=== PATIENT | female | born 1980 | race Caucasian/White ===

== ENCOUNTER 2016-12-20 12:51 | Emergency (ER) | payer OTHER ==
[2016-12-20] MEDS ORDERED: DEXAMETHASONE 10 MG/ML VIAL PO STA (13:58)
[2016-12-20] MEDS ORDERED: CHERRY SYRUP 10 ML UDC PO ONE (14:08)
[2016-12-20] MEDS ORDERED: DEXAMETHASONE 10 MG/ML VIAL ONE (14:08)
== END 2016-12-20 14:17 | disposition home or self-care (01) ==
DX: H66.003 Acute suppurative otitis media without spontaneous rupture of ear drum, bilateral (principal); I49.8 Other specified cardiac arrhythmias; F17.200 Nicotine dependence, unspecified, uncomplicated
CPT/HCPCS: 93005; 93010; 99283; 99284; A9270

== ENCOUNTER 2017-05-06 22:30 | Emergency (ER) | payer OTHER ==
[2017-05-06] MEDS ORDERED: ONDANSETRON ODT 4 MG TABLET TL STA (23:03)
[2017-05-06] MEDS ORDERED: ONDANSETRON ODT 4 MG TABLET ONE (23:07)
[2017-05-06 23:16] LABS: BILIRUBIN,URINE NEGATIVE (NEGATIVE); PH,URINE 6.5 PH (5.0-7.5)
[2017-05-06 23:19] LABS: HCG UR QUAL NEGATIVE; UA CHARGE (STRIP ONLY) YES; UR CULTURE IF IND NOT INDICATED
--- NOTE | 2017-05-06 23:36 | ED Physician Documentation ---
History of Present Illness - Stated complaint Stated Complaint: N/V/EAR PROB - Chief complaint Chief Complaint: General - History obtained from History obtained from: Patient - History of Present Illness Timing: Yesterday - Additonal information Additional information: The patient is a 36-year-old female who presents with epigastric discomfort and vomiting 3 times today. She reports feeling "dizzy" for the past 2 days, with irritation in her left ear as well as frontal headache. She denies fever, sore throat, cough, or dysuria. She was seen by her primary physician 3 days ago for chronic sinusitis. She reports that in the past when she has felt like this she has been diagnosed with an ear infection. Her last menstrual period was 2 weeks ago. Review of Systems Constitutional: denies: Fever Eyes: denies: Irritation Ears: reports: Ear pain (left ear) Nose: reports: Sinus pressure / pain Throat: reports: Dental pain / toothache (left upper molar). denies: Sore throat Cardiac: denies: Chest pain / pressure Respiratory: denies: Dyspnea, Cough GI: reports: Nausea, Vomiting. denies: Abdominal Pain : reports: LMP (2 weeks ago). denies: Dysuria Skin: denies: Rash Musculoskeletal: denies: Back pain, Joint pain Neurologic: reports: Headache (frontal). 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 Psych: Depression - Past Surgical History Past Surgical History: Yes - Present Medications Home Medications: Ambulatory Orders Medication Instructions Recorded Confirmed Fexofenadine HCl 180 mg PO DAILY 12/20/16 05/06/17 Omeprazole Magnesium [Prilosec] 20 mg PO DAILY 12/20/16 05/06/17 Cephalexin 500 mg PO TID #20 tablet 05/06/17 Ondansetron Odt [Zofran] 4 mg TL Q6H PRN #10 tablet 05/06/17 - Allergies Allergies/Adverse Reactions: Allergies Allergy/AdvReac Type Severity Reaction Status Date / Time amoxicillin [Amoxicillin] Allergy Severe airway,yeast Verified 03/29/14 05:42 infec ibuprofen Allergy Severe airway Verified 03/29/14 05:42 - Social History Does the pt smoke?: Yes Smoking Status: Current every day smoker Does the pt drink ETOH?: No Does the pt have substance abuse?: No - Immunizations Immunizations are current?: Yes PD ED PE NORMAL - Vitals Vital signs reviewed: Yes (normal) - General General: Alert and oriented X 3, Well developed/nourished, Other (overweight) - HEENT HEENT: Atraumatic, EOMI, Ears normal, Pharynx benign, Other (There is tenderness to palpation of upper rearmost molar. There is no gingival swelling. There is associated tenderness to palpation of the maxilla adjacent to that tooth. Left tympanic membrane is nonerythematous.) - Neck Neck: Supple, no meningeal sign, No adenopathy, No JVD - Cardiac Cardiac: RRR, No murmur - Respiratory Respiratory: No respiratory distress, Clear bilaterally - Abdomen Abdomen: Soft, Non tender - Back Back: No CVA TTP - Derm Derm: No rash - Extremities Extremities: No edema, No calf tenderness / cord - Neuro Neuro: Alert and oriented X 3, No motor deficit Results - Vitals Vitals: Oxygen O2 Source Room air - Labs Labs: Laboratory Tests 05/06/17 23:10 Urine Color YELLOW Urine Clarity CLEAR Urine pH 6.5 Ur Specific [place] 1.025 Urine Protein NEGATIVE Urine Glucose (UA) NEGATIVE Urine Ketones 40 H Urine Occult Blood TRACE-INTA Urine Nitrite NEGATIVE Urine Bilirubin NEGATIVE Urine Urobilinogen 0.2 (NORMAL) Ur Leukocyte Esterase NEGATIVE Ur Microscopic Review NOT INDICATED Urine Culture Comments NOT INDICATED Urine HCG, Qual NEGATIVE PD MEDICAL DECISION MAKING - ED course Complexity details: reviewed old records, reviewed results, re-evaluated patient , considered differential, d/w patient ED course: The patient's presentation is most consistent with dental abscess, with associated facial discomfort and nausea. Her clinical evaluation reveals no evidence of otitis media, pharyngitis, or acute abdominal process. Urinalysis and urine test are negative. Treatment in the emergency department included administration of Zofran 4 mg orally. This totally relieved her nausea. She is being discharged with prescriptions for cephalexin and for Zofran. I discussed with her the expected course of illness, antibiotic treatment and outpatient follow-up, as well as potentially worrisome signs or symptoms that should prompt reevaluation in the emergency department. Departure - Departure Disposition: 01 Home, Self Care Clinical Impression: Dental abscess Vomiting Qualifiers: Vomiting type: unspecified Vomiting Intractability: non-intractable Nausea presence: with nausea Qualified Code(s): R11.2 - Nausea with vomiting, unspecified Condition: Stable Instructions: ED Abscess Dental, ED Nausea Vomiting Follow-Up: Mel Fu PA-C [Primary Care Provider] - Prescriptions: Cephalexin 500 mg PO TID #20 tablet Ondansetron Odt [Zofran] 4 mg TL Q6H PRN #10 tablet PRN Reason: Nausea / Vomiting Comments: Take cephalexin 3 times daily as prescribed. You can use Zofran as prescribed if needed for nausea. Follow-up with your dentist. Call to schedule an appointment. Return to the emergency department if you develop increasing dental or facial pain, persistent vomiting, or otherwise worsening symptoms. Discharge Date/Time: 05/06/17 23:46
[2017-05-06 23:48] VITALS: BP 120/63
== END 2017-05-06 23:46 | disposition home or self-care (01) ==
LOC: ED 22:30
DX: K04.7 Periapical abscess without sinus (principal); R11.2 Nausea with vomiting, unspecified; K21.9 Gastro-esophageal reflux disease without esophagitis; F32.9 Major depressive disorder, single episode, unspecified; Z88.0 Allergy status to penicillin
CPT/HCPCS: 81003; 81025; 99283; Q0162; 81001; 87086

== ENCOUNTER 2017-09-02 19:30 | Emergency (ER) | payer OTHER ==
[2017-09-02 19:35] VITALS: BP 127/83
[2017-09-02] MEDS ORDERED: cephALEXin 250 MG CAPSULE PO STA (19:56)
--- NOTE | 2017-09-02 19:56 | ED Physician Documentation ---
PD HPI URI - Stated complaint Stated Complaint: COUGH - Chief complaint Chief Complaint: Resp - History obtained from History obtained from: Patient - History of Present Illness Timing - onset: Other (5 weeks sinus pressure and productive cough despite a zpack and steroids a few weeks ago. No fevers.) Review of Systems Constitutional: reports: Fatigue. 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 HEENT: Chronic sinusitis Psych: Depression - Past Surgical History Past Surgical History: Yes - Present Medications Home Medications: Ambulatory Orders Medication Instructions Recorded Confirmed Fexofenadine HCl 180 mg PO DAILY 12/20/16 05/06/17 Omeprazole Magnesium [Prilosec] 20 mg PO DAILY 12/20/16 05/06/17 Cephalexin 500 mg PO TID #20 tablet 05/06/17 Ondansetron Odt [Zofran] 4 mg TL Q6H PRN #10 tablet 05/06/17 Cephalexin [Keflex] 500 mg PO QID #40 capsule 09/02/17 guaiFENesin/CODEINE [Robitussin AC] 5 - 10 ml PO Q6H PRN #120 ml 09/02/17 predniSONE [Deltasone] 20 mg PO [id number] #21 tab 09/02/17 - Allergies Allergies/Adverse Reactions: Allergies Allergy/AdvReac Type Severity Reaction Status Date / Time amoxicillin [Amoxicillin] Allergy Severe airway,yeast Verified 03/29/14 05:42 infec ibuprofen Allergy Severe airway Verified 03/29/14 05:42 - Social History Does the pt smoke?: Yes Smoking Status: Current every day smoker Does the pt drink ETOH?: No Does the pt have substance abuse?: No - Immunizations Immunizations are current?: Yes - POLST Patient has POLST: No PD ED PE NORMAL - Vitals Vital signs reviewed: Yes - General General: Alert and oriented X 3, No acute distress - HEENT HEENT: PERRL, EOMI, Ears normal, Moist mucous membranes, Pharynx benign - Neck Neck: Supple, no meningeal sign, No bony TTP, No bruit - Cardiac Cardiac: RRR, No murmur - Respiratory Respiratory: No respiratory distress, Other (mild rhonchi and wheezes, good air motion) - Derm Derm: No rash - Neuro Neuro: Alert and oriented X 3, Normal speech - Psych Psych: Normal mood, Normal affect Results - Vitals Vitals: Vital Signs - 24 hr 09/02/17 19:32 Temperature 36.3 C L Heart Rate 94 Respiratory 18 Rate Blood Pressure 127/83 H O2 Saturation 99 Oxygen O2 Source Room air PD MEDICAL DECISION MAKING - ED course ED course: 5 weeks of persistent illness is an indication for repeat course of antibiotics. Departure - Departure Disposition: Home, Self Care Clinical Impression: Sinusitis Qualifiers: Sinusitis location: maxillary Chronicity: subacute Qualified Code(s): J01.00 - Acute maxillary sinusitis, unspecified Condition: Good Record reviewed to determine appropriate education?: Yes Instructions: ED Sinusitis Abx Tx Prescriptions: Cephalexin [Keflex] 500 mg PO QID #40 capsule guaiFENesin/CODEINE [Robitussin AC] 5 - 10 ml PO Q6H PRN #120 ml PRN Reason: Cough predniSONE [Deltasone] 20 mg PO [id number] #21 tab Comments: Followup with your doctor in 1 week . Discharge Date/Time: 09/02/17 20:14
[2017-09-02] MEDS ORDERED: predniSONE 20 MG TABLET PO STA (19:57)
[2017-09-02] MEDS ORDERED: predniSONE 20 MG TABLET ONE (20:12)
[2017-09-02] MEDS ORDERED: cephALEXin 250 MG CAPSULE PO ONE (20:12)
== END 2017-09-02 20:14 | disposition home or self-care (01) ==
LOC: ED 19:30
DX: J01.00 Acute maxillary sinusitis, unspecified (principal); F17.200 Nicotine dependence, unspecified, uncomplicated
CPT/HCPCS: 99283; A9270; J7512

== ENCOUNTER 2017-12-09 11:25 | Emergency (ER) | payer OTHER ==
[2017-12-09 11:41] VITALS: BP 125/85
--- NOTE | 2017-12-09 14:34 | ED Physician Documentation ---
PD HPI URI - Stated complaint Stated Complaint: FLU LIKE SYMPTOMS - Chief complaint Chief Complaint: Resp - History obtained from History obtained from: Patient - History of Present Illness Timing - onset: How many weeks ago (2) Timing duration: Weeks (2) Timing details: Gradual onset Pain level max: 6 Pain level now: 5 Associated symptoms: Nasal congestion, Rhinorrhea, Sinus pain, Dry cough. 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 Psych: Depression - Past Surgical History Past Surgical History: Yes - Present Medications Home Medications: Ambulatory Orders Medication Instructions Recorded Confirmed Fexofenadine HCl 180 mg PO DAILY 12/20/16 09/14/17 Omeprazole Magnesium [Prilosec] 20 mg PO DAILY 12/20/16 09/14/17 Ondansetron Odt [Zofran] 4 mg TL Q6H PRN #10 tablet 05/06/17 09/14/17 Benzonatate [Tessalon Perle] 1 tab PO PRN PRN 09/14/17 09/14/17 Fluticasone [Flonase] 1 spray .ROUTE PRN PRN 09/14/17 09/14/17 Sulfamethox/Trimeth 800/160 1 tab PO BID 09/14/17 09/14/17 [Bactrim Ds] Benzonatate [Tessalon Perle] 100 - 200 mg PO TID PRN #30 capsule 12/09/17 Cetirizine HCl/Pseudoephedrine 1 each PO BID PRN #30 tab.er.12h 12/09/17 [Zyrtec-D Tablet] Hydrocodone/Chlorphen P-Stirex 5 ml PO BID PRN #90 ml 12/09/17 [Hydrocodone-Chlorphen ER Susp] - Allergies Allergies/Adverse Reactions: Allergies Allergy/AdvReac Type Severity Reaction Status Date / Time amoxicillin [Amoxicillin] Allergy Severe airway,yeast Verified 09/14/17 02:21 infec ibuprofen Allergy Severe airway Verified 09/14/17 02:21 - Social History Does the pt smoke?: Yes Smoking Status: Current every day smoker Does the pt drink ETOH?: No Does the pt have substance abuse?: No - Immunizations Immunizations are current?: Yes - POLST Patient has POLST: No PD ED PE NORMAL - Vitals Vital signs reviewed: Yes - General General: Alert and oriented X 3, No acute distress, Well developed/nourished - HEENT HEENT: PERRL, Ears normal, Moist mucous membranes, Pharynx benign - Neck Neck: Supple, no meningeal sign - Cardiac Cardiac: RRR, Strong equal pulses - Respiratory Respiratory: No respiratory distress, Clear bilaterally - Abdomen Abdomen: Soft, Non tender, Non distended - Derm Derm: Warm and dry, No rash - Neuro Neuro: Alert and oriented X 3 - Psych Psych: Normal mood, Normal affect Results - Vitals Vitals: Vital Signs - 24 hr 12/09/17 11:36 Temperature 37.1 C Heart Rate 110 H Respiratory 18 Rate Blood Pressure 125/85 H O2 Saturation 99 Oxygen O2 Source Room air PD MEDICAL DECISION MAKING - ED course Complexity details: considered differential, d/w patient ED course: Patient is a 37-year-old female who presents to the emergency department with what appears to be influenza. She is well-appearing, nontoxic. Afebrile. Declines influenza testing at this time. Symptoms have been ongoing, would not be a good Tamiflu candidate. We will instead provide supportive care and follow -up closely with her doctor. Patient counseled regarding signs and symptoms for which I believe and urgent re-evaluation would be necessary. Patient with good understanding of and agreement to plan and is comfortable going home at this time This document was made in part using voice recognition software. While efforts are made to proofread this document, sound alike and grammatical errors may occur. Departure - Departure Disposition: 01 Home, Self Care Clinical Impression: Viral syndrome Condition: Good Instructions: ED Viral Syndrome Follow-Up: Mel Fu PA-C [Primary Care Provider] - Within 1 week Prescriptions: Benzonatate [Tessalon Perle] 100 - 200 mg PO TID PRN #30 capsule PRN Reason: Cough Cetirizine HCl/Pseudoephedrine [Zyrtec-D Tablet] 1 each PO BID PRN #30 tab.er.12h PRN Reason: Nasal Congestion Hydrocodone/Chlorphen P-Stirex [Hydrocodone-Chlorphen ER Susp] 5 ml PO BID PRN # 90 ml PRN Reason: Cough Comments: Return if you worsen. This will likely persist for the next week. Drink plenty of fluids and rest. Do not drink alcohol or drive while on narcotic pain medicine. Note that many narcotic pain relievers also contain tylenol/acetaminophen. Please ensure that your total dose of acetaminophen from all sources does not exceed 3 grams (3000mg) per day. You may constipated on this medication, take a stool softener such as "Colace" twice a day while you are on it. Also recommend a [id number] laxative such as senna or MiraLAX any day that you do not have a bowel movement. If you received narcotic pain medication in the emergency department, do not drive or operate machinery for the next 24 hours. Forms: Activity restrictions Discharge Date/Time: 12/09/17 14:42
== END 2017-12-09 14:42 | disposition home or self-care (01) ==
LOC: ED 11:25
DX: B34.9 Viral infection, unspecified (principal); K21.9 Gastro-esophageal reflux disease without esophagitis; F17.200 Nicotine dependence, unspecified, uncomplicated
CPT/HCPCS: 99283

== ENCOUNTER 2018-03-17 19:22 | Emergency (ER) | payer OTHER ==
[2018-03-17 20:03] LABS: BILIRUBIN,URINE NEGATIVE (NEGATIVE); GLUCOSE, URINE (UA) NEGATIVE (NEGATIVE); KETONES,URINE (UA) NEGATIVE (NEGATIVE); LEUKOCYTE ESTERASE, URINE TRACE (NEGATIVE); NITRITE,URINE NEGATIVE (NEGATIVE); OCCULT BLOOD,URINE NEGATIVE (NEGATIVE); PH,URINE 7.5 PH (5.0-7.5); PROTEIN,URINE NEGATIVE (NEGATIVE); UROBILINOGEN,URINE 0.2 (NORMAL) E.U./dL (NORMAL)
[2018-03-17 20:05] LABS: CLARITY,URINE CLEAR (CLEAR)
[2018-03-17 20:18] LABS: BACTERIA,URINE Moderate /HPF (None Seen); RBC,URINE 0-5 /HPF (0-5); SQUAMOUS EPITHELIAL CELL,UR MANY Squamous (<= Few)
[2018-03-17 20:27] LABS: BASOPHILS % (AUTO) 0.2 %; EOSINOPHILS # (AUTO) 0.1 10^3/uL (0.0-0.7); EOSINOPHILS % (AUTO) 1.1 %; HGB - HEMOGLOBIN 14.7 g/dL (12.0-16.0); LYMPHOCYTES # (AUTO) 0.8 10^3/uL (1.5-3.5); LYMPHOCYTES % (AUTO) 7.1 %; MEAN CORPUSCULAR HEMOGLOBIN 26.8 pg (27.0-31.0); MEAN CORPUSCULAR HGB CONC 32.5 g/dL (32.0-36.0); MEAN CORPUSCULAR VOLUME 82.3 fL (81.0-99.0); MEAN PLATELET VOLUME 7.2 fL (7.9-10.8); MONOCYTES # (AUTO) 0.3 10^3/uL (0.0-1.0); MONOCYTES % (AUTO) 2.5 %; NEUTROPHILS # (AUTO) 9.9 10^3/uL (1.5-6.6); NEUTROPHILS % (AUTO) 89.1 %; PLT - PLATELET COUNT 299 10^3/uL (130-450); WHITE BLOOD COUNT 11.1 x10^3/uL (4.8-10.8)
[2018-03-17 20:38] LABS: HCG UR QUAL NEGATIVE
[2018-03-17 20:40] LABS: ALBUMIN/GLOBULIN RATIO 1.1 (1.0-2.2); BILIRUBIN,TOTAL 0.3 mg/dL (0.2-1.0); CALCIUM 8.9 mg/dL (8.5-10.3); CREATININE 0.5 mg/dL (0.4-1.0); TOTAL PROTEIN 7.7 g/dL (6.7-8.2)
[2018-03-17] MEDS ORDERED: fentaNYL 100 MCG/2 ML VIAL IVP STA (20:43)
[2018-03-17] MEDS ORDERED: ONDANSETRON 4 MG/2 ML VIAL IVP STA (20:43)
[2018-03-17] MEDS ORDERED: SODIUM CHLORIDE 0.9% 1,000 ML IV ONE (20:43)
--- NOTE | 2018-03-17 21:00 | ED Physician Documentation ---
PD HPI ABD PAIN - Stated complaint Stated Complaint: ABD PX/NAUSEA/DIARRHEA - Chief complaint Chief Complaint: Abd Pain - History obtained from History obtained from: Patient - History of Present Illness Timing - onset: Today (This morning after eating breakfast.) Timing - details: Still present Quality: Pain Location: RUQ, Epigastric Worsened by: Eating Associated symptoms: Nausea, Diarrhea. No: Vomiting Similar symptoms before: Has not had sx before - Additional information Additional information: The patient is a 37-year-old female who presents with epigastric abdominal pain that started this morning after eating apple fritters and chips. She has had associated nausea, but denies vomiting. She denies fever or dysuria. She has had diarrhea about 6 times today, with loose stool. She denies history of similar symptoms in the past. She has had no abdominal surgery. Review of Systems Constitutional: denies: Fever Nose: denies: Congestion Throat: denies: Sore throat Cardiac: denies: Chest pain / pressure Respiratory: denies: Dyspnea, Cough GI: reports: Abdominal Pain, Nausea, Diarrhea. 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 Psych: Depression - Past Surgical History Past Surgical History: Yes - Present Medications Home Medications: Ambulatory Orders Medication Instructions Recorded Confirmed Fexofenadine HCl 180 mg PO DAILY 12/20/16 09/14/17 Benzonatate [Tessalon Perle] 1 tab PO PRN PRN 09/14/17 09/14/17 Fluticasone [Flonase] 1 spray .ROUTE PRN PRN 09/14/17 09/14/17 Doxycycline Hyclate 1 cap PO DAILY 03/17/18 03/17/18 Promethazine [Phenergan] 25 - 50 mg PO Q6H PRN #10 tab 03/17/18 oxyCODONE/ACET 5/325 [Percocet 5 1 - 2 tab PO Q4-6H PRN #15 tablet 03/17/18 mg/325 mg] - Allergies Allergies/Adverse Reactions: Allergies Allergy/AdvReac Type Severity Reaction Status Date / Time amoxicillin [Amoxicillin] Allergy Severe airway,yeast Verified 03/17/18 19:31 infec ibuprofen Allergy Severe airway Verified 03/17/18 19:31 - Social History Does the pt smoke?: Yes Smoking Status: Light tobacco smoker Does the pt drink ETOH?: Yes Does the pt have substance abuse?: No - Immunizations Immunizations are current?: Yes - POLST Patient has POLST: No PD ED PE NORMAL - Vitals Vital signs reviewed: Yes (Initially tachycardic.) - General General: Alert and oriented X 3, Well developed/nourished, Other (Overweight.) - HEENT HEENT: Atraumatic, Moist mucous membranes, Pharynx benign - Neck Neck: No adenopathy, No JVD - Cardiac Cardiac: RRR, No murmur - Respiratory Respiratory: No respiratory distress, Clear bilaterally - Abdomen Abdomen: Normal bowel sounds, Soft, Other (Tender to palpation in the right upper quadrant, without rebound tenderness or guarding.) - Back Back: No CVA TTP - Derm Derm: No rash - Extremities Extremities: No edema, No calf tenderness / cord - Neuro Neuro: Alert and oriented X 3, Normal speech Results - Vitals Vitals: Vital Signs - 24 hr 03/17/18 03/17/18 19:29 21:39 Temperature 36.8 C Heart Rate 117 H 90 Respiratory 20 14 Rate Blood Pressure 129/75 151/84 H O2 Saturation 98 98 Oxygen O2 Source Room air - Labs Labs: Laboratory Tests 03/17/18 03/17/18 03/17/18 19:53 19:53 20:10 WBC 11.1 H RBC 5.50 H Hgb 14.7 Hct 45.2 MCV 82.3 MCH 26.8 L MCHC 32.5 RDW 14.0 Plt Count 299 MPV 7.2 L Neut # 9.9 H Lymph # 0.8 L [place] # 0.3 Eos # 0.1 Baso # 0.0 Absolute Nucleated RBC 0.00 Nucleated RBC % 0.0 Sodium Potassium Chloride Carbon Dioxide Anion Gap BUN Creatinine Estimated GFR (MDRD) Glucose Calcium Total Bilirubin AST ALT Alkaline Phosphatase Total Protein Albumin Globulin Albumin/Globulin Ratio Lipase Urine Color YELLOW Urine Clarity CLEAR Urine pH 7.5 Ur Specific [place] 1.020 1.020 Urine Protein NEGATIVE Urine Glucose (UA) NEGATIVE Urine Ketones NEGATIVE Urine Occult Blood NEGATIVE Urine Nitrite NEGATIVE Urine Bilirubin NEGATIVE Urine Urobilinogen 0.2 (NORMAL) Ur Leukocyte Esterase TRACE H Urine RBC 0-5 Urine WBC 4-5 Ur Squamous Epith Cells MANY Squamous H Urine Bacteria Moderate H Ur Microscopic Review INDICATED Urine Culture Comments NOT INDICATED Urine HCG, Qual NEGATIVE 03/17/18 20:10 WBC RBC Hgb Hct MCV MCH MCHC RDW Plt Count MPV Neut # Lymph # [place] # Eos # Baso # Absolute Nucleated RBC Nucleated RBC % Sodium 137 Potassium 3.9 Chloride 106 Carbon Dioxide 25 Anion Gap 6.0 BUN 10 Creatinine 0.5 Estimated GFR (MDRD) 139 Glucose 130 H Calcium 8.9 Total Bilirubin 0.3 AST 20 ALT 21 Alkaline Phosphatase 82 Total Protein 7.7 Albumin 4.0 Globulin 3.7 Albumin/Globulin Ratio 1.1 Lipase 20 L Urine Color Urine Clarity Urine pH Ur Specific [place] Urine Protein Urine Glucose (UA) Urine Ketones Urine Occult Blood Urine Nitrite Urine Bilirubin Urine Urobilinogen Ur Leukocyte Esterase Urine RBC Urine WBC Ur Squamous Epith Cells Urine Bacteria Ur Microscopic Review Urine Culture Comments Urine HCG, Qual - Rads (name of study) RUQ U/S Radiology: Prelim report reviewed, EMP read contemporaneously, See rad report ( Cholelithiasis, without sonographic evidence of cholecystitis. There is no intra-or extrahepatic bile duct dilatation.) PD MEDICAL DECISION MAKING - ED course Complexity details: reviewed results, re-evaluated patient, considered differential, d/w patient ED course: The patient's presentation is significant for right upper quadrant abdominal pain, most consistent with biliary colic. Right upper quadrant ultrasound reveals cholelithiasis, without evidence of cholecystitis. CBC and liver enzymes are unremarkable. Treatment in the emergency department included administration of normal saline 1 L IV, Zofran 4 mg IV and fentanyl 50 mcg IV. This relieved the patient's pain and nausea. I discussed with her the diagnosis , symptomatic treatment and outpatient follow-up, as well as potentially worrisome signs or symptoms that should prompt reevaluation in the emergency department. Departure - Departure Disposition: 01 Home, Self Care Clinical Impression: Biliary colic Cholelithiasis Qualifiers: Cholelithiasis location: gallbladder Cholecystitis presence: without cholecystitis Biliary obstruction: without biliary obstruction Qualified Code(s) : K80.20 - Calculus of gallbladder without cholecystitis without obstruction Condition: Stable Instructions: ED [place] W Biliary Colic Follow-Up: Mel Fu PA-C [Primary Care Provider] - [facility] [Provider Group] Prescriptions: oxyCODONE/ACET 5/325 [Percocet 5 mg/325 mg] 1 - 2 tab PO Q4-6H PRN #15 tablet PRN Reason: Pain Promethazine [Phenergan] 25 - 50 mg PO Q6H PRN #10 tab PRN Reason: Nausea / Vomiting Comments: Avoid greasy or fatty foods. You can use Phenergan as prescribed if needed for nausea. You can use Percocet as prescribed as needed for pain. Follow-up with general surgery as soon as possible. Call tomorrow to schedule appointment. Return to the emergency department if you develop increasing abdominal pain, fever, persistent vomiting, or otherwise worsening symptoms. Discharge Date/Time: 03/17/18 22:09
[2018-03-17 21:40] VITALS: BP 151/84
--- NOTE | 2018-03-17 21:50 | Ultrasound Report ---
EXAM: ABDOMEN ULTRASOUND LIMITED, RUQ EXAM DATE: 03/17/2018 09:31 PM. CLINICAL HISTORY: RUQ abd. Pain after eating apple fritter. COMPARISON: None. TECHNIQUE: Real-time scanning was performed with static images obtained. FINDINGS: Liver: Submitted images of liver demonstrate no focal lesions. Main portal vein flow: Hepatopetal. Gallbladder: There is cholelithiasis. Gallbladder wall thickening. Negative sonographic Rich sign. Biliary System: CBD measures 3 mm. No intrahepatic or extrahepatic ductal dilatation. Other: The right kidney demonstrates no hydronephrosis. IMPRESSION: 1. There is cholelithiasis without sonographic evidence of cholecystitis. 2. There is no intra-or extrahepatic bile duct dilatation. [facility] Referring Provider Line: [phone] SITE ID: [id number]
== END 2018-03-17 22:09 | disposition home or self-care (01) ==
LOC: ED 19:22
DX: K80.20 Calculus of gallbladder without cholecystitis without obstruction (principal); F17.200 Nicotine dependence, unspecified, uncomplicated
CPT/HCPCS: 36415; 76705; 80053; 81001; 81003; 81025; 83690; 85025; 87086; 96361; 96374; 96375; 99283; 99284

== ENCOUNTER 2018-04-12 07:11 | Day surgery (SDC) | payer OTHER ==
[2018-04-12] MEDS ORDERED: IOTHALAMATE MEGLUMINE 50 ML VIAL ONE (07:26)
[2018-04-12] MEDS ORDERED: BUPIVACAINE 0.5%-EPI 1:200000 PF 10 ML VIAL ONE (07:27)
[2018-04-12 07:33] LABS: HCG UR QUAL NEGATIVE
[2018-04-12] MEDS ORDERED: LACTATED RINGERS 1,000 ML IV ONE ×2 (07:53→09:29)
[2018-04-12] MEDS ORDERED: GLYCOPYRROLATE 1 MG/5 ML VIAL IVP ONE (08:45)
[2018-04-12] MEDS ORDERED: ONDANSETRON 4 MG/2 ML VIAL IVP ONE (08:45)
[2018-04-12] MEDS ORDERED: fentaNYL 250 MCG/5 ML VIAL IVP ONE (08:45)
[2018-04-12] MEDS ORDERED: NEOSTIGMINE 1 MG/1 ML 10 ML MDV IVP ONE (08:45)
[2018-04-12] MEDS ORDERED: MIDAZOLAM 2 MG/2 ML VIAL IVP ONE (08:45)
[2018-04-12] MEDS ORDERED: LIDOCAINE-MPF 2% 5 ML VIAL IM ONE (08:45)
[2018-04-12] MEDS ORDERED: DEXAMETHASONE 4 MG/ML VIAL IVP ONE (08:45)
[2018-04-12] MEDS ORDERED: ACETAMINOPHEN 1,000 MG/100 ML 100 ML IV ONE (08:45)
[2018-04-12] MEDS ORDERED: KETOROLAC 30 MG/ML VIAL IVP ONE (08:45)
[2018-04-12] MEDS ORDERED: ROCURONIUM 50 MG/5 ML VIAL IVP ONE (08:45)
[2018-04-12] MEDS ORDERED: PROPOFOL 200 MG/20 ML VIAL IVP ONE (08:45)
[2018-04-12] MEDS ORDERED: HYDROmorphone 0.5 MG/0.5 ML SYRINGE ONE (10:04)
--- NOTE | 2018-04-12 10:06 | XRAY Report ---
INTRAOPERATIVE CHOLANGIOGRAM: 04/12/2018 CLINICAL INDICATION: Cholelithiasis. FINDINGS: Two images of an intraoperative cholangiogram demonstrate normal caliber of the common bile duct and visualized intrahepatic ducts. Contrast spills into the duodenum. No intraluminal filling defect is identified to suggest choledocholithiasis. 24 seconds of fluoroscopy time was provided to Dr. Musa; 2 spot images obtained. IMPRESSION: NORMAL INTRAOPERATIVE CHOLANGIOGRAM. TD: 04/12/2018 09:44
[2018-04-12] MEDS ORDERED: ONDANSETRON 4 MG/2 ML VIAL ONE (10:08)
[2018-04-12] MEDS ORDERED: SCOPOLAMINE PATCH TOP ONE (10:13)
[2018-04-12] MEDS ORDERED: HYDROcod/ACETAM 5/325 MG TABLET ONE (10:34)
[2018-04-12 11:59] VITALS: BP 113/64
--- NOTE | 2018-04-15 04:08 | OPERATIVE REPORT ---
DATE OF SERVICE: 04/12/2018 Physician: Obey Musa MD PREOPERATIVE DIAGNOSIS: Symptomatic cholelithiasis. POSTOPERATIVE DIAGNOSES: Symptomatic cholelithiasis, umbilical hernia. PROCEDURE PERFORMED: Laparoscopic cholecystectomy with intraoperative cholangiogram and umbilical hernia repair. OPERATING SURGEON: Obey Musa MD ANESTHESIA: General. INDICATIONS FOR PROCEDURE: The patient is a 37-year-old female who presents with intermittent right upper quadrant abdominal pain. She underwent an abdominal ultrasound revealing gallbladder with gallstones. FINDINGS AT SURGERY: The patient had a gallbladder containing numerous small gallstones. There is chronic inflammation around the gallbladder. A cholangiogram had been performed, which was normal, without any filling defects being noted. PROCEDURE: After informed consent was obtained, the patient was taken to the operating room and placed in supine position. General endotracheal anesthesia was administered. The patient's abdomen was then prepped and draped in the usual sterile fashion. Prior to making any abdominal incisions on the skin, the skin was injected with local anesthesia. An infraumbilical incision was made in the skin using a scalpel. A 12-mm Optiview trocar was inserted through the incision, through the fascia, and into the abdominal cavity under direct vision. The abdomen was then insufflated. Looking inside no injuries were noted. Three 5-mm ports were then placed in right upper quadrant under direct vision. The gallbladder had scarring around it, being omentum. This was taken down using a [place] grasper and cautery, carefully avoiding any injuries to surrounding structures. Gallbladder fundus was then grasped and lifted anteriorly and superiorly exposing the triangle of Calot. The peritoneum was then scored and cystic duct identified. It was dissected free from the surrounding structures. Cystic artery was likewise dissected free. A clip was then placed proximally and distally along the cystic artery with them being divided between the clips. Critical view had been obtained. A Draper clamp had been placed across the Olivier's pouch and the needle was then inserted into the pouch. A cholangiogram was performed, which showed normal biliary anatomy without any filling defects being present. The clamp was then removed. Clips were then placed proximally and distally along the cystic duct with them being divided between the clips. The gallbladder was then dissected off the gallbladder bed using electrocautery, placed in Endobag and removed through the umbilical port. When looking at the umbilical port, the patient was found to have a small umbilical hernia. The gallbladder and its contents had been removed. The right upper quadrant was thoroughly irrigated until the return fluid was clear. Looking again at the umbilical area, the hernia along with the incision was then closed. Using SunshineOumou, three sutures were placed trans fascially and then tied, closing both the hernia and the surgical defect in the fascia well. The abdomen was then desufflated after removing the ports. The skin incisions were closed using 4-0 Monocryl subcuticular stitch. Dermabond was then placed upon the incision site. The patient was then awakened, extubated, and taken from the operating room in stable condition. ESTIMATED BLOOD LOSS: Less than 5 mL COMPLICATIONS: None. CONDITION OF THE PATIENT AT THE END OF PROCEDURE: Stable. SPECIMENS: Gallbladder and gallstones. DRAINS, PACKS: None. CLASSIFICATION OF WOUND: Clean. TD: 04/15/2018 00:03
== END 2018-04-12 07:12 | disposition home or self-care (01) ==
LOC: SDS 07:11
PROVIDERS: ATTEND Surgery
PROC: BF12YZZ Fluoroscopy of Gallbladder using Other Contrast (ICD-10-PCS; 2018-04-12)
PROC: 0WQF4ZZ Repair Abdominal Wall, Percutaneous Endoscopic Approach (ICD-10-PCS; 2018-04-12)
PROC: 0FT44ZZ Resection of Gallbladder, Percutaneous Endoscopic Approach (ICD-10-PCS; principal; 2018-04-12 08:15)
DX: K80.10 Calculus of gallbladder with chronic cholecystitis without obstruction (principal); K42.9 Umbilical hernia without obstruction or gangrene; J45.909 Unspecified asthma, uncomplicated; F17.210 Nicotine dependence, cigarettes, uncomplicated; K21.9 Gastro-esophageal reflux disease without esophagitis; F32.9 Major depressive disorder, single episode, unspecified; F41.9 Anxiety disorder, unspecified
CPT/HCPCS: 47563; 74300; 81025; A9270; J0131; J1170; J3010; J3490; J7120; Q9961; 88304

== ENCOUNTER 2018-04-28 12:22 | Emergency (ER) | payer OTHER ==
[2018-04-28 12:30] VITALS: BP 138/86
--- NOTE | 2018-04-28 13:41 | XRAY Report ---
Procedure Date: 04/28/2018 Accession Number: [id number] / [id number] Procedure: XR - Chest 2 View X-Ray CPT Code: 85891 FULL RESULT: EXAM: CHEST RADIOGRAPHY EXAM DATE: 04/28/2018 01:22 PM. CLINICAL HISTORY: Cough. RLL ronchil. COMPARISON: 09/04/2017. TECHNIQUE: 2 views. FINDINGS: Lungs/Pleura: Mild hazy opacity in the anterior lower right lobe is newly noted; otherwise, no discrete focal opacities evident. No pleural effusion. No pneumothorax. Normal volumes. Mediastinum: Heart and mediastinal contours are unremarkable. Other: None. IMPRESSION: 1. Imaging artifact versus new mild patchy opacity, likely mild or early infiltrate process in the right middle lobe. 2. No discrete opacity in either lower lobe. RADIA
--- NOTE | 2018-04-28 14:08 | ED Physician Documentation ---
History of Present Illness - Stated complaint Stated Complaint: COUGH/2 WEEKS POST OP - Chief complaint Chief Complaint: Heent - Additonal information Additional information: hx from pt 37 f denies preg 2 weeks s/p lexus and ventral hernia worsening productive cough no fever but taking apap no leg pain or swelling no sig SOA was a day surgery has been ambulatory Review of Systems Constitutional: denies: Fever Respiratory: reports: Cough. 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 HEENT: Chronic sinusitis Psych: Depression, Anxiety Musculoskeletal: None Derm: None - Past Surgical History Past Surgical History: Yes General: Cholecystectomy, Other Ortho: Other - Present Medications Home Medications: Ambulatory Orders Medication Instructions Recorded Confirmed Fexofenadine HCl 180 mg PO DAILY 12/20/16 04/11/18 Fluticasone [Flonase] 1 spray .ROUTE PRN PRN 09/14/17 04/11/18 Albuterol Sulfate [Proventil Hfa 1 - 2 puffs INH Q4H PRN 04/11/18 04/11/18 Inhaler] Azithromycin [Zithromax] 250 mg PO DAILY #6 tablet 04/28/18 guaiFENesin/CODEINE [Robitussin AC] 5 - 10 ml PO Q6H PRN #120 udc 04/28/18 - Allergies Allergies/Adverse Reactions: Allergies Allergy/AdvReac Type Severity Reaction Status Date / Time amoxicillin [Amoxicillin] Allergy Severe Respiratory Verified 04/12/18 07:40 ibuprofen Allergy Severe Respiratory Verified 04/12/18 07:40 adhesive tape AdvReac Rash Verified 04/12/18 07:40 - Social History Does the pt smoke?: Yes Smoking Status: Current every day smoker Does the pt drink ETOH?: Yes Does the pt have substance abuse?: No - Immunizations Immunizations are current?: Yes - POLST Patient has POLST: No PD ED PE NORMAL - Vitals Vital signs reviewed: Yes - General General: Alert and oriented X 3 - HEENT HEENT: PERRL - Neck Neck: Supple, no meningeal sign - Cardiac Cardiac: RRR - Respiratory Respiratory: No respiratory distress. No: Clear bilaterally (focal ronchi R base) - Extremities Extremities: No edema, No calf tenderness / cord - Neuro Neuro: Alert and oriented X 3 Results - Vitals Vitals: Vital Signs - 24 hr 04/28/18 12:26 Temperature 36.7 C Heart Rate 94 Respiratory 16 Rate Blood Pressure 138/86 H O2 Saturation 96 Oxygen O2 Source Room air - Rads (name of study) CXR Radiology: See rad report (hazy opacity ant RLL) PD MEDICAL DECISION MAKING - Sepsis Event Vital Signs: Vital Signs - 24 hr 04/28/18 12:26 Temperature 36.7 C Heart Rate 94 Respiratory 16 Rate Blood Pressure 138/86 H O2 Saturation 96 Oxygen O2 Source Room air Departure - Departure Disposition: Home, Self Care Clinical Impression: Pneumonia Qualifiers: Pneumonia type: due to unspecified organism Laterality: right Lung location: lower lobe of lung Qualified Code(s): J18.1 - Lobar pneumonia, unspecified organism Condition: Good Instructions: ED Pneumonia Adult Prescriptions: Azithromycin [Zithromax] 250 mg PO DAILY #6 tablet guaiFENesin/CODEINE [Robitussin AC] 5 - 10 ml PO Q6H PRN #120 udc PRN Reason: Cough Comments: There is a pneumonia in the base of the right lung on exam and xray Please take the antibiotics as prescribed I also prescribed robitussin with codeine which you can take in addition to your tessalon
== END 2018-04-28 14:18 | disposition home or self-care (01) ==
LOC: ED 12:22
DX: J18.1 Lobar pneumonia, unspecified organism (principal); J45.909 Unspecified asthma, uncomplicated; F17.200 Nicotine dependence, unspecified, uncomplicated
CPT/HCPCS: 71046; 99283

== ENCOUNTER 2018-05-06 17:12 | Outpatient (CLI) | END 2018-05-06 17:13 | disposition home or self-care (01) ==

== ENCOUNTER 2018-06-04 03:57 | Emergency (ER) | payer OTHER ==
[2018-06-04] MEDS ORDERED: ONDANSETRON 4 MG/2 ML VIAL IVP STA (05:32)
--- NOTE | 2018-06-04 05:35 | ED Physician Documentation ---
PD HPI NVD - Stated complaint Stated Complaint: VOMITING,DIARRHEA - Chief complaint Chief Complaint: Abd Pain - History obtained from History obtained from: Patient - History of Present Illness Timing - onset: Today. No: Enter time (0200) Timing - duration: Hours Timing - details: Abrupt onset, Still present Associated symptoms: Abdominal pain, Loss of appetite Contributing factors: Sick contact, Recent antibiotics Improved by: Vomiting, BM Similar symptoms before: Diagnosis (gastroenteritis) Recently seen: Emergency Dept, Surgery - Additonal information Additional information: 37-year-old female who is status post cholecystectomy 6 weeks ago was well earlier in the day and this evening when she brought her son to the emergency department for otitis she had [employer] on the way home. She states that she had 2 small hamburgers and some Kinyarwanda fries and she woke in the middle of the night with profuse watery diarrhea that just came out. She continued to have diarrhea and then developed vomiting and she is come to the emergency department for assistance with persistent vomiting and diarrhea. 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 HEENT: Chronic sinusitis Psych: Depression, Anxiety Musculoskeletal: None Derm: None - Past Surgical History Past Surgical History: Yes General: Cholecystectomy, Other Ortho: Other - Present Medications Home Medications: Ambulatory Orders Medication Instructions Recorded Confirmed Fexofenadine HCl 180 mg PO DAILY 12/20/16 04/11/18 Fluticasone [Flonase] 1 spray .ROUTE PRN PRN 09/14/17 04/11/18 Albuterol Sulfate [Proventil Hfa 1 - 2 puffs INH Q4H PRN 04/11/18 04/11/18 Inhaler] Azithromycin [Zithromax] 250 mg PO DAILY #6 tablet 04/28/18 guaiFENesin/CODEINE [Robitussin AC] 5 - 10 ml PO Q6H PRN #120 udc 04/28/18 Ondansetron Odt [Zofran] 4 mg TL Q6H PRN #10 tablet 06/04/18 Sucralfate [Carafate] 1 gm PO ACHS #30 tablet 06/04/18 - Allergies Allergies/Adverse Reactions: Allergies Allergy/AdvReac Type Severity Reaction Status Date / Time amoxicillin [Amoxicillin] Allergy Severe Respiratory Verified 06/04/18 04:12 ibuprofen Allergy Severe Respiratory Verified 06/04/18 04:12 adhesive tape AdvReac Rash Verified 06/04/18 04:12 - Social History Does the pt smoke?: Yes Smoking Status: Current every day smoker Does the pt drink ETOH?: Yes Does the pt have substance abuse?: No - Immunizations Immunizations are current?: Yes - POLST Patient has POLST: No PD ED PE NORMAL - Vitals Vital signs reviewed: Yes (hypertension ) - General General: Alert and oriented X 3, No acute distress, Well developed/nourished - HEENT HEENT: Atraumatic, PERRL, EOMI - Neck Neck: Supple, no meningeal sign - Cardiac Cardiac: RRR, No murmur - Respiratory Respiratory: No respiratory distress, Clear bilaterally - Abdomen Abdomen: Soft, Non tender - Back Back: No CVA TTP, No spinal TTP - Derm Derm: Normal color, Warm and dry, No rash - Extremities Extremities: No deformity, No edema - Neuro Neuro: Alert and oriented X 3, aircraft 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 mechanic 2-12 intact, No motor deficit, No sensory deficit, Normal speech Eye Opening: Spontaneous Motor: Obeys Commands Verbal: Oriented GCS Score: 15 - Psych Psych: Normal mood, Normal affect Results - Vitals Vitals: Vital Signs - 24 hr 06/04/18 06/04/18 06/04/18 04:10 06:20 07:03 Temperature 36.8 C 36.8 C Heart Rate 95 102 H 66 Respiratory 18 17 16 Rate Blood Pressure 126/83 H 142/78 H 130/68 O2 Saturation 99 96 100 Oxygen O2 Source Room air - Labs Labs: Laboratory Tests 06/04/18 06/04/18 06/04/18 05:43 05:43 06:26 WBC 14.5 H RBC 5.70 H Hgb 16.0 Hct 48.3 H MCV 84.8 MCH 28.1 MCHC 33.2 RDW 13.8 Plt Count 365 MPV 7.0 L Neut # (Auto) 13.1 H Lymph # (Auto) 0.8 L [place] # (Auto) 0.5 Eos # (Auto) 0.1 Baso # (Auto) 0.0 Absolute Nucleated RBC 0.01 Nucleated RBC % 0.0 Sodium 138 Potassium 3.7 Chloride 103 Carbon Dioxide 28 Anion Gap 7.0 BUN 13 Creatinine 0.8 Estimated GFR (MDRD) 81 L Glucose 131 H Calcium 8.9 Total Bilirubin 0.9 AST 23 ALT 32 Alkaline Phosphatase 105 Total Protein 8.2 Albumin 4.3 Globulin 3.9 Albumin/Globulin Ratio 1.1 Lipase 24 Urine Color YELLOW Urine Clarity CLEAR Urine pH 6.0 Ur Specific [place] 1.025 Urine Protein NEGATIVE Urine Glucose (UA) NEGATIVE Urine Ketones NEGATIVE Urine Occult Blood TRACE-LYSE Urine Nitrite NEGATIVE Urine Bilirubin NEGATIVE Urine Urobilinogen 0.2 (NORMAL) Ur Leukocyte Esterase TRACE H Urine RBC 0-5 Urine WBC 0-3 Ur Squamous Epith Cells MOD Squamous H Urine Bacteria None Seen Ur Microscopic Review INDICATED Urine Culture Comments NOT INDICATED Urine HCG, Qual NEGATIVE PD MEDICAL DECISION MAKING - ED course Complexity details: reviewed results, re-evaluated patient, considered differential, d/w patient ED course: 37 y/o female s/p lexus with acute gastroenteritis is given IV saline and zofran. - Sepsis Event Vital Signs: Vital Signs - 24 hr 06/04/18 06/04/18 06/04/18 04:10 06:20 07:03 Temperature 36.8 C 36.8 C Heart Rate 95 102 H 66 Respiratory 18 17 16 Rate Blood Pressure 126/83 H 142/78 H 130/68 O2 Saturation 99 96 100 Oxygen O2 Source Room air Departure - Departure Disposition: 01 Home, Self Care Clinical Impression: Gastroenteritis Condition: Stable Instructions: ED Gastroenteritis Non Infec Follow-Up: Mel Fu PA-C [Primary Care Provider] - Prescriptions: Ondansetron Odt [Zofran] 4 mg TL Q6H PRN #10 tablet PRN Reason: Nausea / Vomiting Discharge Date/Time: 06/04/18 07:22
[2018-06-04] MEDS ORDERED: SODIUM CHLORIDE 0.9% 1,000 ML IV ONE (05:36)
[2018-06-04 05:49] LABS: BASOPHILS % (AUTO) 0.3 %; EOSINOPHILS # (AUTO) 0.1 10^3/uL (0.0-0.7); EOSINOPHILS % (AUTO) 0.4 %; LYMPHOCYTES # (AUTO) 0.8 10^3/uL (1.5-3.5); LYMPHOCYTES % (AUTO) 5.2 %; MEAN CORPUSCULAR HEMOGLOBIN 28.1 pg (27.0-31.0); MEAN CORPUSCULAR HGB CONC 33.2 g/dL (32.0-36.0); MEAN CORPUSCULAR VOLUME 84.8 fL (81.0-99.0); MONOCYTES # (AUTO) 0.5 10^3/uL (0.0-1.0); MONOCYTES % (AUTO) 3.8 %; NEUTROPHILS # (AUTO) 13.1 10^3/uL (1.5-6.6); NEUTROPHILS % (AUTO) 90.3 %; PLT - PLATELET COUNT 365 10^3/uL (130-450); RED CELL DISTRIBUTION WIDTH 13.8 % (12.0-15.0); WHITE BLOOD COUNT 14.5 x10^3/uL (4.8-10.8)
[2018-06-04 06:01] LABS: ALBUMIN 4.3 g/dL (3.2-5.5); ALBUMIN/GLOBULIN RATIO 1.1 (1.0-2.2); BILIRUBIN,TOTAL 0.9 mg/dL (0.2-1.0); CALCIUM 8.9 mg/dL (8.5-10.3); CREATININE 0.8 mg/dL (0.4-1.0); TOTAL PROTEIN 8.2 g/dL (6.7-8.2)
[2018-06-04 06:30] LABS: GLUCOSE, URINE (UA) NEGATIVE (NEGATIVE); KETONES,URINE (UA) NEGATIVE (NEGATIVE); LEUKOCYTE ESTERASE, URINE TRACE (NEGATIVE); NITRITE,URINE NEGATIVE (NEGATIVE); OCCULT BLOOD,URINE TRACE-LYSE (NEGATIVE); PROTEIN,URINE NEGATIVE (NEGATIVE); UROBILINOGEN,URINE 0.2 (NORMAL) E.U./dL (NORMAL)
[2018-06-04 06:36] LABS: BILIRUBIN,URINE NEGATIVE (NEGATIVE); CLARITY,URINE CLEAR (CLEAR); HCG UR QUAL NEGATIVE; ICTOTEST,URINE NEGATIVE
[2018-06-04 06:39] LABS: BACTERIA,URINE None Seen /HPF (None Seen); RBC,URINE 0-5 /HPF (0-5); SQUAMOUS EPITHELIAL CELL,UR MOD Squamous (<= Few)
[2018-06-04 07:04] VITALS: BP 130/68
== END 2018-06-04 07:22 | disposition home or self-care (01) ==
LOC: ED 03:57
DX: K52.9 Noninfective gastroenteritis and colitis, unspecified (principal); F17.200 Nicotine dependence, unspecified, uncomplicated; Z90.49 Acquired absence of other specified parts of digestive tract
CPT/HCPCS: 36415; 80053; 81001; 81003; 81025; 83690; 85025; 87086; 99283

== ENCOUNTER 2018-06-04 20:23 | Emergency (ER) | payer OTHER ==
[2018-06-04 20:44] LABS: BASOPHILS % (AUTO) 0.3 %; EOSINOPHILS # (AUTO) 0.1 10^3/uL (0.0-0.7); EOSINOPHILS % (AUTO) 0.7 %; HGB - HEMOGLOBIN 14.2 g/dL (12.0-16.0); LYMPHOCYTES # (AUTO) 1.2 10^3/uL (1.5-3.5); LYMPHOCYTES % (AUTO) 14.5 %; MEAN CORPUSCULAR HEMOGLOBIN 28.5 pg (27.0-31.0); MEAN CORPUSCULAR VOLUME 83.8 fL (81.0-99.0); MONOCYTES # (AUTO) 0.4 10^3/uL (0.0-1.0); MONOCYTES % (AUTO) 5.4 %; NEUTROPHILS # (AUTO) 6.4 10^3/uL (1.5-6.6); NEUTROPHILS % (AUTO) 79.1 %; PLT - PLATELET COUNT 283 10^3/uL (130-450); RED BLOOD COUNT 4.99 10^6/uL (4.20-5.40); RED CELL DISTRIBUTION WIDTH 13.6 % (12.0-15.0)
--- NOTE | 2018-06-04 20:52 | ED Physician Documentation ---
PD HPI CHEST PAIN - Stated complaint Stated Complaint: CP - Chief complaint Chief Complaint: Cardiac - History obtained from History obtained from: Patient - History of Present Illness Timing - onset: Today Timing - onset during: Rest Timing - duration: Hours Timing - details: Abrupt onset, Still present Quality: Sharp, Indigestion, Pain Location: Substernal, Left chest Radiation: Back Improved by: Antacids Worsened by: No: Exertion, Inspiration Associated symptoms: Nausea, Vomiting. No: Shortness of air, Diaphoresis Similar symptoms before: Diagnosis (gallbladder attack) Recently seen: Emergency Dept - Additional information Additional information: 37-year-old female who is 6 weeks status post cholecystectomy was seen in the emergency department last night with acute nausea vomiting and diarrhea after eating at [employer] had some improvement in her nausea and vomiting and eventually this afternoon felt like she could go ahead and eat something shortly after she ate she developed pain in her substernal area radiating to her back. She did take some antacids with some mild temporary relief but after she woke up from her nap her pain was as bad as it was previously and she felt uncertain about what was happening and felt she needed to come to the emergency department and she might be having a heart attack. Review of Systems Constitutional: denies: Fever Eyes: denies: Decreased vision Ears: denies: Ear pain Nose: denies: Rhinorrhea / runny nose, Congestion Throat: denies: Sore throat Cardiac: reports: Chest pain / pressure. denies: Palpitations, Pedal edema, Calf pain Respiratory: denies: Dyspnea, Cough GI: reports: Abdominal Pain, Nausea, Vomiting, Diarrhea : denies: Dysuria, Frequency Skin: denies: Rash Musculoskeletal: reports: Back pain. 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 HEENT: Chronic sinusitis Psych: Depression, Anxiety Musculoskeletal: None Derm: None - Past Surgical History Past Surgical History: Yes General: Cholecystectomy, Other Ortho: Other - Present Medications Home Medications: Ambulatory Orders Medication Instructions Recorded Confirmed Fexofenadine HCl 180 mg PO DAILY 12/20/16 04/11/18 Fluticasone [Flonase] 1 spray .ROUTE PRN PRN 09/14/17 04/11/18 Albuterol Sulfate [Proventil Hfa 1 - 2 puffs INH Q4H PRN 04/11/18 04/11/18 Inhaler] Azithromycin [Zithromax] 250 mg PO DAILY #6 tablet 04/28/18 guaiFENesin/CODEINE [Robitussin AC] 5 - 10 ml PO Q6H PRN #120 udc 04/28/18 Ondansetron Odt [Zofran] 4 mg TL Q6H PRN #10 tablet 06/04/18 Sucralfate [Carafate] 1 gm PO ACHS #30 tablet 06/04/18 - Allergies Allergies/Adverse Reactions: Allergies Allergy/AdvReac Type Severity Reaction Status Date / Time amoxicillin [Amoxicillin] Allergy Severe Respiratory Verified 06/04/18 04:12 ibuprofen Allergy Severe Respiratory Verified 06/04/18 04:12 adhesive tape AdvReac Rash Verified 06/04/18 04:12 - Social History Does the pt smoke?: Yes Smoking Status: Current every day smoker Does the pt drink ETOH?: Yes Does the pt have substance abuse?: No - Immunizations Immunizations are current?: Yes - POLST Patient has POLST: No PD ED PE NORMAL - Vitals Vital signs reviewed: Yes (hypertensive mild ) - General General: Alert and oriented X 3, Well developed/nourished, Other (lead informatica developer tone and flat affect indicate the effects of pain ) - HEENT HEENT: Atraumatic, PERRL, EOMI - Neck Neck: Supple, no meningeal sign, No bony TTP - Cardiac Cardiac: No murmur, Other (tachy to 100) - Respiratory Respiratory: No respiratory distress, Clear bilaterally - Abdomen Abdomen: Soft, Other (mild epigastric tenderness no right upper quadrant tenderness. Surgical scars are without inflamation ) - Back Back: No CVA TTP, No spinal TTP - Derm Derm: Normal color, Warm and dry, No rash - Neuro Neuro: Alert and oriented X 3, mail room 2-12 intact, No motor deficit, No sensory deficit, Normal speech Eye Opening: Spontaneous Motor: Obeys Commands Verbal: Oriented GCS Score: 15 - Psych Psych: Normal mood Results - Vitals Vitals: Vital Signs - 24 hr 06/04/18 06/04/18 06/04/18 20:25 20:41 21:43 Temperature 36.3 C L Heart Rate 94 86 80 Respiratory 16 17 19 Rate Blood Pressure 135/75 H 139/87 H 123/81 H Blood Pressure 139/87 H [Left] Blood Pressure 145/79 H [Right] O2 Saturation 98 99 99 Oxygen O2 Source Room air - EKG (time done) 2030 Rate: Rate (enter#) (101) Rhythm: Sinus tachycardia Converse: LAD Compare to prior EKG: Changed from prior EKG (SPT 09-14-18 rate has increased) Computer interpretation: Agree with computer - Labs Labs: Laboratory Tests 06/04/18 06/04/18 06/04/18 20:35 20:35 20:35 WBC 8.0 RBC 4.99 Hgb 14.2 Hct 41.8 MCV 83.8 MCH 28.5 MCHC 34.0 RDW 13.6 Plt Count 283 MPV 7.0 L Neut # (Auto) 6.4 Lymph # (Auto) 1.2 L [place] # (Auto) 0.4 Eos # (Auto) 0.1 Baso # (Auto) 0.0 Absolute Nucleated RBC 0.00 Nucleated RBC % 0.0 Sodium 135 Potassium 3.2 L Chloride 102 Carbon Dioxide 27 Anion Gap 6.0 BUN 9 Creatinine 0.7 Estimated GFR (MDRD) 94 Glucose 116 H Calcium 8.4 L Total Bilirubin 1.2 H AST 34 ALT 35 Alkaline Phosphatase 106 Troponin I < 0.04 Total Protein 7.4 Albumin 3.7 Globulin 3.7 Albumin/Globulin Ratio 1.0 Lipase 23 Procedures - IVC sono (time) 2100 Bedside IVC sono: IVC measures (cm) (1.54), Euvolemia PD MEDICAL DECISION MAKING - ED course Complexity details: reviewed results, re-evaluated patient, considered differential, d/w patient ED course: 37-year-old female with acute epigastric pain has improvement with use of viscous lidocaine and Mylanta. She has had recent gastroenteritis and I suspect she has significant gastritis associated with this and she has not been taking any ibuprofen or Aleve. She denies any alcohol use. She is administered Pepcid intravenously and a second dose of lidocaine Mylanta will place her on some Carafate as well. - Sepsis Event Vital Signs: Vital Signs - 24 hr 06/04/18 06/04/18 06/04/18 20:25 20:41 21:43 Temperature 36.3 C L Heart Rate 94 86 80 Respiratory 16 17 19 Rate Blood Pressure 135/75 H 139/87 H 123/81 H Blood Pressure 139/87 H [Left] Blood Pressure 145/79 H [Right] O2 Saturation 98 99 99 Oxygen O2 Source Room air Departure - Departure Disposition: Home, Self Care Clinical Impression: Gastritis Qualifiers: Gastritis type: unspecified gastritis Chronicity: acute Gastritis bleeding: without bleeding Qualified Code(s): K29.00 - Acute gastritis without bleeding Condition: Stable Instructions: ED PUD Vs Gastritis Follow-Up: Mel Fu PA-C [Primary Care Provider] - Prescriptions: Sucralfate [Carafate] 1 gm PO ACHS #30 tablet Comments: Today it appears your abdominal pain is related to your stomach itself and inflammation of the stomach lining. We recommend you take some Pepcid AC twice per day and the Carafate as prescribed before meals and at bedtime. You will need to take this for about 1 week and following that you should have improvement in her symptoms. If symptoms persist follow-up with your primary care doctor. Forms: Activity restrictions
[2018-06-04 20:57] LABS: ALBUMIN 3.7 g/dL (3.2-5.5); BILIRUBIN,TOTAL 1.2 mg/dL (0.2-1.0); CALCIUM 8.4 mg/dL (8.5-10.3); CREATININE 0.7 mg/dL (0.4-1.0); TOTAL PROTEIN 7.4 g/dL (6.7-8.2)
[2018-06-04] MEDS ORDERED: SUCRALFATE 1 GM/10 ML UDC PO STA (20:59)
[2018-06-04] MEDS ORDERED: LIDOCAINE VISCOUS 2% 15 ML UDC MM STA (20:59)
[2018-06-04] MEDS ORDERED: MAG HYDROX/AL HYDROX/SIMETH 30 ML UDC PO STA (20:59)
[2018-06-04] MEDS ORDERED: FAMOTIDINE 20 MG/50 ML 50 ML IV ONE (21:00)
[2018-06-04] MEDS ORDERED: POTASSIUM BICARB 25 MEQ TABLET PO STA (21:44)
[2018-06-04 22:58] VITALS: BP 127/83
== END 2018-06-04 23:08 | disposition home or self-care (01) ==
LOC: ED 20:23
DX: K29.00 Acute gastritis without bleeding (principal); R00.0 Tachycardia, unspecified; F17.200 Nicotine dependence, unspecified, uncomplicated
CPT/HCPCS: 36415; 80053; 81001; 81025; 83690; 84484; 85025; 93005; 96361; 96365; 96374; 99283; 99284; A9270

== ENCOUNTER 2018-10-08 13:46 | Emergency (ER) | payer OTHER ==
--- NOTE | 2018-10-08 15:33 | ED Physician Documentation ---
PD HPI MHE - Stated complaint Stated Complaint: ANXIETY - Chief complaint Chief Complaint: MHE - History obtained from History obtained from: Patient - History of Present Illness Primary symptom: Anxiety Timing - onset: How many weeks ago (5) Contributing factors: Family, Work Similar symptoms before: Diagnosis (anxiety) Recently seen: Not recently seen - Additional information Additional information: 38-year-old female with a history of situational anxiety has developed anxiety over her job. 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 The patient was not told what her performance issues were. She has been complaining about the work issues to her coworkers and friends and she has been called into HR to discontinue this activity. She is awakening at night concerned about work and concerned about losing her job. She does have 2 autistic children at home that are nonverbal and she has taken 1 of her children in this past month for tonsillectomy and adenoidectomy. This required the child to stay in the hospital a total of 5 days and she was only expecting this to be 2 days. She feels that this may be the time where her work performance suffered. She has previously been employed in a number of jobs and has not had performance issues. Review of Systems Constitutional: denies: Fever, Chills, Myalgias Eyes: denies: Decreased vision Ears: denies: Ear pain Nose: denies: Rhinorrhea / runny nose, Congestion Throat: denies: Oral lesions / sores Cardiac: denies: Chest pain / pressure, Palpitations Respiratory: denies: Dyspnea, Cough GI: denies: Abdominal Pain, Nausea, Vomiting : denies: Dysuria, Frequency Skin: denies: Rash Musculoskeletal: denies: Neck pain, Back pain, Extremity pain Neurologic: denies: Generalized weakness, Focal weakness, Numbness Psychiatric: reports: Anxiety, Insomnia. 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 HEENT: Chronic sinusitis Psych: Depression, Anxiety Musculoskeletal: None Derm: None - Past Surgical History Past Surgical History: Yes General: Cholecystectomy, Other Ortho: Other - Present Medications Home Medications: Ambulatory Orders Medication Instructions Recorded Confirmed Fexofenadine HCl 180 mg PO DAILY 12/20/16 04/11/18 Fluticasone [Flonase] 1 spray .ROUTE PRN PRN 09/14/17 04/11/18 Albuterol Sulfate [Proventil Hfa 1 - 2 puffs INH Q4H PRN 04/11/18 04/11/18 Inhaler] Azithromycin [Zithromax] 250 mg PO DAILY #6 tablet 04/28/18 guaiFENesin/CODEINE [Robitussin AC] 5 - 10 ml PO Q6H PRN #120 udc 04/28/18 Ondansetron Odt [Zofran] 4 mg TL Q6H PRN #10 tablet 06/04/18 Sucralfate [Carafate] 1 gm PO ACHS #30 tablet 06/04/18 Alprazolam [Xanax] 0.25 - 0.5 mg PO Q8HR PRN #12 10/08/18 tablet - Allergies Allergies/Adverse Reactions: Allergies Allergy/AdvReac Type Severity Reaction Status Date / Time amoxicillin [Amoxicillin] Allergy Severe Respiratory Verified 06/04/18 04:12 ibuprofen Allergy Severe Respiratory Verified 06/04/18 04:12 adhesive tape AdvReac Rash Verified 06/04/18 04:12 - Social History Does the pt smoke?: Yes Smoking Status: Current every day smoker Does the pt drink ETOH?: Yes Does the pt have substance abuse?: No - Immunizations Immunizations are current?: Yes - POLST Patient has POLST: No PD ED PE NORMAL - Vitals Vital signs reviewed: Yes (hpyertensive) - General General: Alert and oriented X 3, Well developed/nourished, Other (emotionally labile) - HEENT HEENT: Atraumatic, PERRL, EOMI - Neck Neck: Supple, no meningeal sign - Respiratory Respiratory: No respiratory distress - Derm Derm: Normal color, Warm and dry, No rash - Extremities Extremities: No deformity, No edema - Neuro Neuro: Alert and oriented X 3, 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, No motor deficit, No sensory deficit, Normal speech Eye Opening: Spontaneous Motor: Obeys Commands Verbal: Oriented GCS Score: 15 - Psych Psych: Normal affect, Other (mood is labile with emotions) Results - Vitals Vitals: Vital Signs - 24 hr 10/08/18 13:49 Temperature 36.2 C L Heart Rate 90 Respiratory 16 Rate Blood Pressure 143/92 H O2 Saturation 99 Oxygen O2 Source Room air PD MEDICAL DECISION MAKING - ED course Complexity details: reviewed old records, considered differential, d/w patient ED course: 38-year-old female with a history of anxiety appears to have anxiety associated with her performance at work. She appears to have had an issue with a child that is now resolved and this may been distracting for her at work. She is now dealing with the anxiety itself and she is having trouble sleeping. I have recommended to her that she take Benadryl nightly at bedtime for improved sleep hygiene and I will provide her with a prescription for a limited number of Xanax which she has used successfully in the past. Departure - Departure Disposition: 01 Home, Self Care Clinical Impression: Anxiety Condition: Stable Instructions: ED Stress React, ED Panic Attack Follow-Up: Mel Fu PA-C [Primary Care Provider] - Prescriptions: Alprazolam [Xanax] 0.25 - 0.5 mg PO Q8HR PRN #12 tablet PRN Reason: Anxiety Forms: Activity restrictions
[2018-10-08 16:14] VITALS: BP 138/80
== END 2018-10-08 16:14 | disposition home or self-care (01) ==
LOC: ED 13:46
DX: F41.9 Anxiety disorder, unspecified (principal); G47.00 Insomnia, unspecified; F17.200 Nicotine dependence, unspecified, uncomplicated
CPT/HCPCS: 99283

== ENCOUNTER 2019-03-26 16:30 | Outpatient (CLI) | payer OTHER | END 2019-03-26 23:59 | disposition home or self-care (01) | LOC: LAB.R 16:30 | PROVIDERS: ATTEND Physician Assistant Medical | DX: R31.9 Hematuria, unspecified (principal) | CPT/HCPCS: 87086 ==

== ENCOUNTER 2019-05-04 23:03 | Emergency (ER) | payer OTHER ==
[2019-05-05] MEDS ORDERED: CHERRY SYRUP 10 ML UDC PO ONE
[2019-05-05] MEDS ORDERED: cefUROXime axetil 250 MG TABLET PO STA
[2019-05-05] MEDS ORDERED: DEXAMETHASONE 10 MG/ML VIAL PO STA
--- NOTE | 2019-05-05 00:01 | ED Physician Documentation ---
PD HPI URI - Stated complaint Stated Complaint: SOA/COUGH/SINUS PX - Chief complaint Chief Complaint: Resp - History obtained from History obtained from: Patient - History of Present Illness Timing - onset: How many weeks ago (4) Timing duration: Weeks (4) Timing details: Gradual onset, Still present Associated symptoms: Nasal congestion, Rhinorrhea, Sore throat, Productive cough, Dyspnea Contributing factors: Sick contact Improves by: Rest, Medication Similar symptoms before: Diagnosis (OM) Recently seen: Clinic - Additional information Additional information: 38-year-old female has had a cough and congestion for the past month. She was placed on a course of doxycycline and prednisone and she felt that this did not change her symptoms. She continues to have a cough and shortness of breath and a bit of a sore throat in the back of her throat. 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 HEENT: Chronic sinusitis Psych: Depression, Anxiety Musculoskeletal: None Derm: None - Past Surgical History Past Surgical History: Yes General: Cholecystectomy, Other Ortho: Other - Present Medications Home Medications: Ambulatory Orders Medication Instructions Recorded Confirmed Fluticasone [Flonase] 1 spray .ROUTE PRN PRN 09/14/17 05/04/19 Alprazolam [Xanax] 0.25 - 0.5 mg PO Q8HR PRN #12 10/08/18 05/04/19 tablet Albuterol Sulfate [Albuterol 2 puffs IH Q4HR PRN 05/04/19 05/04/19 Sulfate Hfa] Cetirizine HCl/Pseudoephedrine 1 tab PO DAILY 05/04/19 05/04/19 [Zyrtec-D Tablet] Fexofenadine/Pseudoephedrine 1 tab PO DAILY 05/04/19 05/04/19 [[place]ira-D 24 Hour Tablet] cefUROXime axetil [Ceftin] 500 mg PO Q12H #20 tablet 05/05/19 - Allergies Allergies/Adverse Reactions: Allergies Allergy/AdvReac Type Severity Reaction Status Date / Time amoxicillin [Amoxicillin] Allergy Severe Respiratory Verified 05/04/19 23:13 ibuprofen Allergy Severe Respiratory Verified 05/04/19 23:13 cat dander Allergy Unknown Verified 05/04/19 23:13 mold Allergy Unknown Verified 05/04/19 23:13 adhesive tape AdvReac Rash Verified 05/04/19 23:13 dust mites Allergy Unknown Uncoded 05/04/19 23:13 - Social History Does the pt smoke?: Yes Smoking Status: Current every day smoker Does the pt drink ETOH?: Yes Does the pt have substance abuse?: No - Immunizations Immunizations are current?: Yes - POLST Patient has POLST: No PD ED PE NORMAL - Vitals Vital signs reviewed: Yes - General General: Alert and oriented X 3, No acute distress, Well developed/nourished, Other (frequent coughing ) - HEENT HEENT: Atraumatic, PERRL, EOMI, Other (There is inflamation to both TM's with distortion of the landmarks. Mild posterior pharyngeal erythema) - Neck Neck: Supple, no meningeal sign, No bony TTP - Cardiac Cardiac: RRR, No murmur - Respiratory Respiratory: No respiratory distress, Other (diminished breath sounds but clear without wheeze. ) - Abdomen Abdomen: Soft, Non tender - Back Back: No CVA TTP, No spinal TTP - Derm Derm: Normal color, Warm and dry, No rash - Extremities Extremities: No deformity, No edema, No calf tenderness / cord - Neuro Neuro: Alert and oriented X 3, vat operator 2-12 intact, No motor deficit, No sensory deficit, Normal speech Eye Opening: Spontaneous Motor: Obeys Commands Verbal: Oriented GCS Score: 15 - Psych Psych: Normal mood, Normal affect Results - Vitals Vitals: Oxygen O2 Source Room air PD MEDICAL DECISION MAKING - ED course Complexity details: reviewed old records, reviewed results, re-evaluated patient, considered differential, d/w patient ED course: 38-year-old female with cough and congestion for the past month appears to have failed a course of doxycycline for otitis media. She is administered dexamethasone here in the emergency department and we have switched her class of antibiotic to Ceftin. Departure - Departure Disposition: 01 Home, Self Care Clinical Impression: Otitis media Qualifiers: Otitis media type: suppurative Chronicity: acute Laterality: bilateral Recurrence: not specified as recurrent Spontaneous tympanic membrane rupture: without spontaneous rupture Qualified Code(s): H66.003 - Acute suppurative otitis media without spontaneous rupture of ear drum, bilateral Condition: Stable Instructions: ED Otitis Media Acute Adult Follow-Up: Mel Fu PA-C [Primary Care Provider] - Prescriptions: cefUROXime axetil [Ceftin] 500 mg PO Q12H #20 tablet
[2019-05-05 00:40] VITALS: BP 124/85
== END 2019-05-05 00:40 | disposition home or self-care (01) ==
LOC: ED 23:03
DX: H66.003 Acute suppurative otitis media without spontaneous rupture of ear drum, bilateral (principal); F17.200 Nicotine dependence, unspecified, uncomplicated
CPT/HCPCS: 99283; A9270

== ENCOUNTER 2019-05-12 15:47 | Outpatient (CLI) | payer OTHER ==
--- NOTE | 2019-05-13 00:21 | XRAY Report ---
Reason: COUGH Procedure Date: 05/12/2019 Accession Number: [id number] / [id number] Procedure: XRN - Chest 2 View X-Ray CPT Code: 81181 FULL RESULT: EXAM: CHEST RADIOGRAPHY EXAM DATE: 05/12/2019 03:59 PM. CLINICAL HISTORY: COUGH. COMPARISON: CHEST 2 VIEW 05/06/2018 5:20 PM. TECHNIQUE: 2 views. FINDINGS: Lungs/Pleura: No dense consolidation. No large effusion or pneumothorax. No pulmonary edema. Mediastinum: Heart and mediastinal contours are unremarkable. Other: None. IMPRESSION: No acute radiographic pulmonary abnormalities. RADIA
== END 2019-05-12 15:48 | disposition home or self-care (01) ==
LOC: DI.N 15:47
PROVIDERS: ATTEND Physician Assistant
DX: R05 Cough (principal)
CPT/HCPCS: 71046

== ENCOUNTER 2019-07-04 20:47 | Emergency (ER) | payer OTHER ==
[2019-07-04 21:16] LABS: GLUCOSE, URINE (UA) NEGATIVE (NEGATIVE); KETONES,URINE (UA) TRACE mg/dL (NEGATIVE); LEUKOCYTE ESTERASE, URINE SMALL (NEGATIVE); NITRITE,URINE NEGATIVE (NEGATIVE); OCCULT BLOOD,URINE SMALL (NEGATIVE); PROTEIN,URINE 30 mg/dL (NEGATIVE); UROBILINOGEN,URINE 2 E.U./dL (NORMAL)
[2019-07-04 21:26] LABS: BILIRUBIN,URINE NEGATIVE (NEGATIVE); CLARITY,URINE HAZY (CLEAR); HCG UR QUAL NEGATIVE; ICTOTEST,URINE NEGATIVE
[2019-07-04 21:34] LABS: BACTERIA,URINE Few /HPF (None Seen); RBC,URINE 0-5 /HPF (0-5); SQUAMOUS EPITHELIAL CELL,UR MANY Squamous (<= Few)
[2019-07-04] MEDS ORDERED: PHENAZOPYRIDINE 100 MG TABLET PO STA (21:49)
[2019-07-04] MEDS ORDERED: NITROFURANTOIN MACRO 100 MG CAPSULE PO STA (21:49)
--- NOTE | 2019-07-04 21:50 | ED Physician Documentation ---
PD HPI FEMALE - Stated complaint Stated Complaint: FEM - Chief complaint Chief Complaint: UTI - History obtained from History obtained from: Patient - History of Present Illness Timing - onset: Today (39-year-old woman developed urinary frequency and dysuria this evening without flank pain, fevers, or nausea. 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 HEENT: Chronic sinusitis Psych: Depression, Anxiety Musculoskeletal: None Derm: None - Past Surgical History Past Surgical History: Yes General: Cholecystectomy, Other Ortho: Other - Present Medications Home Medications: Ambulatory Orders Medication Instructions Recorded Confirmed Fluticasone [Flonase] 1 spray .ROUTE PRN PRN 09/14/17 05/04/19 Alprazolam [Xanax] 0.25 - 0.5 mg PO Q8HR PRN #12 10/08/18 05/04/19 tablet Albuterol Sulfate [Albuterol 2 puffs IH Q4HR PRN 05/04/19 05/04/19 Sulfate Hfa] Cetirizine HCl/Pseudoephedrine 1 tab PO DAILY 05/04/19 05/04/19 [Zyrtec-D Tablet] Fexofenadine/Pseudoephedrine 1 tab PO DAILY 05/04/19 05/04/19 [T[place]ira-D 24 Hour Tablet] cefUROXime axetil [Ceftin] 500 mg PO Q12H #20 tablet 05/05/19 Nitrofurantoin Monohyd/M-Cryst 100 mg PO BID #10 capsule 07/04/19 [Macrobid 100 mg Capsule] Phenazopyridine HCl [Pyridium] 200 mg PO TID PRN #6 tablet 07/04/19 - Allergies Allergies/Adverse Reactions: Allergies Allergy/AdvReac Type Severity Reaction Status Date / Time amoxicillin [Amoxicillin] Allergy Severe Respiratory Verified 05/04/19 23:13 ibuprofen Allergy Severe Respiratory Verified 05/04/19 23:13 cat dander Allergy Unknown Verified 05/04/19 23:13 mold Allergy Unknown Verified 05/04/19 23:13 adhesive tape AdvReac Rash Verified 05/04/19 23:13 dust mites Allergy Unknown Uncoded 05/04/19 23:13 - Social History Does the pt smoke?: Yes Smoking Status: Current every day smoker Does the pt drink ETOH?: Yes Does the pt have substance abuse?: No - Immunizations Immunizations are current?: Yes - POLST Patient has POLST: No PD ED PE NORMAL - Vitals Vital signs reviewed: Yes - General General: Alert and oriented X 3, No acute distress - Cardiac Cardiac: RRR, No murmur - Respiratory Respiratory: No respiratory distress, Clear bilaterally - Abdomen Abdomen: Soft, Non tender - Back Back: No CVA TTP - Derm Derm: No rash - Neuro Neuro: Alert and oriented X 3, Normal speech Results - Vitals Vitals: Vital Signs - 24 hr 07/04/19 20:54 Temperature 36.8 C Heart Rate 82 Respiratory 14 Rate Blood Pressure 132/75 H O2 Saturation 98 Oxygen O2 Source Room air - Labs Labs: Laboratory Tests 07/04/19 21:05 Urine Color YELLOW Urine Clarity HAZY Urine pH 6.0 Ur Specific [place] >=1.030 H Urine Protein 30 H Urine Glucose (UA) NEGATIVE Urine Ketones TRACE Urine Occult Blood SMALL H Urine Nitrite NEGATIVE Urine Bilirubin NEGATIVE Urine Urobilinogen 2 H Ur Leukocyte Esterase SMALL H Urine RBC 0-5 Urine WBC >25 H Ur Squamous Epith Cells MANY Squamous H Urine Bacteria Few Ur Microscopic Review INDICATED Urine Culture Comments NOT INDICATED Urine HCG, Qual NEGATIVE Departure - Departure Disposition: 01 Home, Self Care Clinical Impression: Cystitis Condition: Good Record reviewed to determine appropriate education?: Yes Instructions: ED UTI Cystitis Female Prescriptions: Nitrofurantoin Monohyd/M-Cryst [Macrobid 100 mg Capsule] 100 mg PO BID #10 capsule Phenazopyridine HCl [Pyridium] 200 mg PO TID PRN #6 tablet PRN Reason: dysuria Comments: You should be better within the next day or 2, return for new or worsening symptoms. Follow-up with your doctor Sunday if not better. Your blood pressure was elevated today on check into the emergency department. This does not mean that you have hypertension, it is a common phenomenon to come to the emergency department and have elevated blood pressure. I recommend that you see your primary care physician within the week to have it rechecked when you are feeling better.
[2019-07-04 22:00] VITALS: BP 128/75
== END 2019-07-04 22:00 | disposition home or self-care (01) ==
LOC: ED 20:47
DX: N30.90 Cystitis, unspecified without hematuria (principal); R03.0 Elevated blood-pressure reading, without diagnosis of hypertension; F17.200 Nicotine dependence, unspecified, uncomplicated
CPT/HCPCS: 81001; 81025; 99283; A9270; 81003; 87086

== ENCOUNTER 2019-07-08 20:09 | Outpatient (CLI) | payer OTHER ==
--- NOTE | 2019-07-08 22:11 | Ultrasound Report ---
Reason: CALF PAIN,LEFT Procedure Date: 07/08/2019 Accession Number: [id number] / [id number] Procedure: US - Duplex Venous Limited CPT Code: FULL RESULT: EXAM: LEFT LOWER EXTREMITY VENOUS ULTRASOUND EXAM DATE: 07/08/2019 09:42 PM. CLINICAL HISTORY: CALF PAIN,LEFT. COMPARISON: None. TECHNIQUE: Real-time sonographic vascular imaging was performed by the diamond cleaver through the lower extremity utilizing both color-flow and Doppler spectral analysis. Multiple union contract representative static images were saved for review. FINDINGS: Common Femoral Vein (CFV): Normal. CFV-GSV Junction: Normal. Profunda Femoral Vein (PFV): Normal. Femoral Vein (FV) Prox: Normal. Femoral Vein (FV) Mid: Normal. Femoral Vein (FV) Dist: Normal. Popliteal Vein: Normal. Posterior Tibial Veins: Normal. Peroneal Veins: Normal. IMPRESSION: No evidence for deep venous thrombosis. RAD[facility] The call report notification system was initiated by Dr. Gail Cruz at 10:09 PM on 07/08/2019.
== END 2019-07-08 20:10 | disposition home or self-care (01) ==
LOC: DI 20:09
PROVIDERS: ATTEND Physician Assistant Medical
DX: M79.662 Pain in left lower leg (principal)
CPT/HCPCS: 93971

== ENCOUNTER 2019-11-06 07:30 | Outpatient (CLI) | payer OTHER ==
--- NOTE | 2019-11-06 09:33 | Ultrasound Report ---
Reason: ABD WALL HERNIA Procedure Date: 11/06/2019 Accession Number: [id number] / [id number] Procedure: US - Abdomen Limited CPT Code: Final Report FULL RESULT: EXAM: ABDOMEN ULTRASOUND LIMITED, RUQ EXAM DATE: 11/06/2019 07:32 AM. CLINICAL HISTORY: Abdominal wall hernia. Palpable lump left upper quadrant of the abdomen. COMPARISON: ABDOMEN LIMITED 03/17/2018 8:53 PM. TECHNIQUE: Real-time scanning was performed with static images obtained. FINDINGS: Focused sonography of the left upper quadrant of the abdomen at the area of concern as indicated by the patient. No abdominal wall hernia identified. No cystic or mass lesions were visualized. No skin thickening or free fluid. IMPRESSION: No abdominal wall hernia identified at the patient's indicated area of concern. RADIA
== END 2019-11-06 07:31 | disposition home or self-care (01) ==
LOC: DI 07:30
PROVIDERS: ATTEND Family Medicine
DX: K43.9 Ventral hernia without obstruction or gangrene (principal)
CPT/HCPCS: 76705

== ENCOUNTER 2019-12-25 20:25 | Emergency (ER) | payer OTHER ==
[2019-12-25 20:40] VITALS: BP 124/84
[2019-12-25] MEDS ORDERED: levoFLOXacin 250 MG TABLET PO STA (20:56)
--- NOTE | 2019-12-25 20:57 | ED Physician Documentation ---
PD LILIAN HEENT - Stated complaint Stated Complaint: FLU SYMPTOMS - Chief complaint Chief Complaint: Resp - History obtained from History obtained from: Patient - History of Present Illness Timing - onset: Other (39-year-old woman has been sick for 4 weeks with cough, runny nose, sinus pain. The cough is been worse for the last 3 days. Only productive in the morning. She has mild shortness of breath. No fevers or chills. She has some chest heaviness radiating to the back. No severe pain. Pain is worse if she bends backwards. 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 HEENT: Chronic sinusitis Psych: Depression, Anxiety Musculoskeletal: None Derm: None - Past Surgical History Past Surgical History: Yes General: Cholecystectomy, Other Ortho: Other - Present Medications Home Medications: Ambulatory Orders Medication Instructions Recorded Confirmed Fluticasone [Flonase] 1 spray .ROUTE PRN PRN 09/14/17 05/04/19 Alprazolam [Xanax] 0.25 - 0.5 mg PO Q8HR PRN #12 10/08/18 05/04/19 tablet Albuterol Sulfate [Albuterol 2 puffs IH Q4HR PRN 05/04/19 05/04/19 Sulfate Hfa] Cetirizine HCl/Pseudoephedrine 1 tab PO DAILY 05/04/19 05/04/19 [Zyrtec-D Tablet] Fexofenadine/Pseudoephedrine 1 tab PO DAILY 05/04/19 05/04/19 [Tahira-D 24 Hour Tablet] cefUROXime axetiL [Ceftin] 500 mg PO Q12H #20 tablet 05/05/19 Nitrofurantoin Monohyd/M-Cryst 100 mg PO BID #10 capsule 07/04/19 [Macrobid 100 mg Capsule] Phenazopyridine HCl [Pyridium] 200 mg PO TID PRN #6 tablet 07/04/19 Levofloxacin [Levaquin] 500 mg PO DAILY #10 tablet 12/25/19 - Allergies Allergies/Adverse Reactions: Allergies Allergy/AdvReac Type Severity Reaction Status Date / Time amoxicillin [Amoxicillin] Allergy Severe Respiratory Verified 05/04/19 23:13 ibuprofen Allergy Severe Respiratory Verified 05/04/19 23:13 cat dander Allergy Unknown Verified 05/04/19 23:13 cefuroxime [From Ceftin] Allergy Unknown Verified 07/07/19 07:37 mold Allergy Unknown Verified 05/04/19 23:13 adhesive tape AdvReac Rash Verified 05/04/19 23:13 dust mites Allergy Unknown Uncoded 05/04/19 23:13 - Social History Does the pt smoke?: Yes Smoking Status: Current every day smoker Does the pt drink ETOH?: Yes Does the pt have substance abuse?: No - Immunizations Immunizations are current?: Yes - POLST Patient has POLST: No PD ED PE NORMAL - Vitals Vital signs reviewed: Yes - General General: Alert and oriented X 3, No acute distress - HEENT HEENT: Other (She has left maxillary sinus tenderness, oropharynx and TMs are normal.) - Neck Neck: Supple, no meningeal sign, No bony TTP - Cardiac Cardiac: RRR, No murmur - Respiratory Respiratory: No respiratory distress, Clear bilaterally - Abdomen Abdomen: Non tender - Back Back: No CVA TTP, No spinal TTP - Derm Derm: Normal color, Warm and dry - Extremities Extremities: No edema, No calf tenderness / cord - Neuro Neuro: Alert and oriented X 3, Normal speech Results - Vitals Vitals: Vital Signs - 24 hr 12/25/19 20:34 Temperature 36.8 C Heart Rate 100 Respiratory 18 Rate Blood Pressure 124/84 H O2 Saturation 97 Oxygen O2 Source Room air - EKG (time done) 2046 Rate: Rate (enter#) (89) Rhythm: NSR [place]: Normal Intervals: Normal IA QRS: Normal Ischemia: Normal ST segments Computer interpretation: Agree with computer PD MEDICAL DECISION MAKING - ED course ED course: Her concern was for pneumonia, there is really no clinical evidence of that. She does have persistent sinusitis which has failed treatment with doxycycline and the antibiotic choice is difficult given her allergies to both amoxicillin and cephalosporins. As such Levaquin was chosen. Nothing in the history or physical to suggest PE. Nothing to suggest dissection. ACS is considered but she has a completely nonischemic EKG. Departure - Departure Disposition: 01 Home, Self Care Clinical Impression: Sinusitis Qualifiers: Sinusitis location: maxillary Chronicity: acute Recurrence: recurrent Qualified Code(s): J01.01 - Acute recurrent maxillary sinusitis Condition: Good Record reviewed to determine appropriate education?: Yes Instructions: ED Sinusitis Abx Tx Prescriptions: Levofloxacin [Levaquin] 500 mg PO DAILY #10 tablet Comments: You were seen today for what sounds like a left maxillary sinus infection that never really went away, antibiotic choice was somewhat difficult between the amoxicillin and cephalosporin allergy. Also the fact that you have failed treatment with doxycycline now. Levofloxacin is the next in line, does have more side effects though, return for any diarrhea and try not to do strenuous exercise or run while you are on this antibiotic and for a week after you complete it. Follow-up with your doctor in a week regardless, return for other new or worsening symptoms.
== END 2019-12-25 21:04 | disposition home or self-care (01) ==
LOC: ED 20:25
DX: J01.01 Acute recurrent maxillary sinusitis (principal); F17.200 Nicotine dependence, unspecified, uncomplicated
CPT/HCPCS: 93005; 99283; 99284; A9270

== ENCOUNTER 2019-12-27 16:38 | Emergency (ER) | payer OTHER ==
[2019-12-27] MEDS ORDERED: IPRATROPIUM/ALBUTEROL 3 ML NEB INH STA (16:55)
--- NOTE | 2019-12-27 17:00 | ED Physician Documentation ---
PD HPI URI - Stated complaint Stated Complaint: CHEST DISCOMFORT - Chief complaint Chief Complaint: Cardiac - History obtained from History obtained from: Patient - History of Present Illness Timing - onset: How many days ago (2-3) Timing duration: Days Timing details: Gradual onset Pain level max: 3 Pain level now: 2 Associated symptoms: Nasal congestion, Rhinorrhea, Dry cough, Chest pain (tightness), Dyspnea. No: Fever, Chills Improves by: Rest, MDI/nebulizer (albuterol this am helped) Worsened by: Activity Recently seen: Emergency Dept (seen here 2 days ago for same, placed on levaquin) Review of Systems Constitutional: denies: Fever, Chills Nose: reports: Rhinorrhea / runny nose, Congestion Throat: denies: Sore throat Cardiac: denies: Palpitations, Calf pain Respiratory: reports: Dyspnea, Cough, Wheezing GI: denies: Nausea, Vomiting, Diarrhea Skin: denies: Rash Musculoskeletal: denies: Neck pain, Back pain Neurologic: denies: Headache PD PAST MEDICAL HISTORY - Past Medical History Cardiovascular: None Respiratory: Asthma Neuro: None Endocrine/Autoimmune: None GI: GERD 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: Other : None HEENT: Chronic sinusitis Psych: Depression, Anxiety Musculoskeletal: None Derm: None - Past Surgical History Past Surgical History: Yes General: Cholecystectomy, Other Ortho: Other - Present Medications Home Medications: Ambulatory Orders Medication Instructions Recorded Confirmed Fluticasone [Flonase] 1 spray .ROUTE PRN PRN 09/14/17 05/04/19 Alprazolam [Xanax] 0.25 - 0.5 mg PO Q8HR PRN #12 10/08/18 05/04/19 tablet Albuterol Sulfate [Albuterol 2 puffs IH Q4HR PRN 05/04/19 05/04/19 Sulfate Hfa] Cetirizine HCl/Pseudoephedrine 1 tab PO DAILY 05/04/19 05/04/19 [Zyrtec-D Tablet] Fexofenadine/Pseudoephedrine 1 tab PO DAILY 05/04/19 05/04/19 [[place]-D 24 Hour Tablet] cefUROXime axetiL [Ceftin] 500 mg PO Q12H #20 tablet 05/05/19 Nitrofurantoin Monohyd/M-Cryst 100 mg PO BID #10 capsule 07/04/19 [Macrobid 100 mg Capsule] Phenazopyridine HCl [Pyridium] 200 mg PO TID PRN #6 tablet 07/04/19 Levofloxacin [Levaquin] 500 mg PO DAILY #10 tablet 12/25/19 Albuterol Sulfate [Proair Hfa 1 - 2 puffs INH Q4H PRN #1 inhaler 12/27/19 Inhaler] predniSONE [Deltasone] 10 mg PO [id number] #42 tab 12/27/19 - Allergies Allergies/Adverse Reactions: Allergies Allergy/AdvReac Type Severity Reaction Status Date / Time amoxicillin [Amoxicillin] Allergy Severe Respiratory Verified 12/27/19 16:42 ibuprofen Allergy Severe Respiratory Verified 12/27/19 16:42 cat dander Allergy Unknown Verified 12/27/19 16:42 cefuroxime [From Ceftin] Allergy Unknown Verified 12/27/19 16:42 mold Allergy Unknown Verified 12/27/19 16:42 adhesive tape AdvReac Rash Verified 12/27/19 16:42 dust mites Allergy Unknown Uncoded 05/04/19 23:13 - Social History Does the pt smoke?: Yes Smoking Status: Current every day smoker Does the pt drink ETOH?: Yes Does the pt have substance abuse?: No - Immunizations Immunizations are current?: Yes - POLST Patient has POLST: No PD ED PE NORMAL - Vitals Vital signs reviewed: Yes - General General: Alert and oriented X 3, No acute distress - HEENT HEENT: Moist mucous membranes - Neck Neck: Supple, no meningeal sign - Cardiac Cardiac: RRR - Respiratory Respiratory: No respiratory distress, Other (Diminished breath sounds bilaterally, right greater than left) - Abdomen Abdomen: Soft, Non tender, Non distended - Derm Derm: Warm and dry, No rash - Extremities Extremities: No edema - Neuro Neuro: Alert and oriented X 3 Results - Vitals Vitals: Vital Signs - 24 hr 12/27/19 12/27/19 12/27/19 16:42 17:20 18:00 Temperature 36.7 C Heart Rate 108 H 108 H 118 H Respiratory 16 18 16 Rate Blood Pressure 180/109 H O2 Saturation 100 12/27/19 18:22 Temperature 36.8 C Heart Rate 118 H Respiratory 12 Rate Blood Pressure 130/79 O2 Saturation 98 Oxygen O2 Source Room air - EKG (time done) 1657 Rate: Rate (enter#) (107) Rhythm: Sinus tachycardia [place]: Normal Intervals: Normal MI QRS: Normal Ischemia: Normal ST segments, Q waves (III, aVF) - Rads (name of study) Chest x-ray Radiology: Prelim report reviewed, EMP read contemporaneously, See rad report (Chronic airway thickening versus mild bronchitis. No focal pneumonia) PD MEDICAL DECISION MAKING - ED course Complexity details: reviewed old records, reviewed results, re-evaluated patient, considered differential, d/w patient ED course: 39-year-old female with what appears to be a mild bronchitis. Will place on steroids and inhalers for home. Feels better after DuoNeb treatment here. No acute EKG findings. Symptoms are not consistent with acute coronary syndrome. No evidence of PE. Patient counseled regarding signs and symptoms for which I believe and urgent re-evaluation would be necessary. Patient with good understanding of and agreement to plan and is comfortable going home at this time This document was made in part using voice recognition software. While efforts are made to proofread this document, sound alike and grammatical errors may occur. Departure - Departure Disposition: 01 Home, Self Care Clinical Impression: Bronchitis Condition: Good Instructions: ED Bronchitis Asthmatic Follow-Up: Deborah Armstrong MD [Primary Care Provider] - As Needed Prescriptions: Albuterol Sulfate [Proair Hfa Inhaler] 1 - 2 puffs INH Q4H PRN #1 inhaler PRN Reason: Shortness Of Air/Wheezing predniSONE [Deltasone] 10 mg PO [id number] #42 tab Comments: Make sure you are using a spacer with her inhaler. Return if you worsen. This should improve over the next few days. You can stop the Levaquin Discharge Date/Time: 12/27/19 18:24
[2019-12-27] MEDS ORDERED: ALBUTEROL NEB 2.5 MG/3 ML INH STA (17:52)
[2019-12-27] MEDS ORDERED: predniSONE 20 MG TABLET PO STA (17:52)
--- NOTE | 2019-12-27 18:00 | XRAY Report ---
Reason: cough Procedure Date: 12/27/2019 Accession Number: [id number] / [id number] Procedure: XR - Chest 2 View X-Ray CPT Code: 87705 Final Report FULL RESULT: EXAM: CHEST RADIOGRAPHY EXAM DATE: 12/27/2019 05:41 PM. CLINICAL HISTORY: Cough. COMPARISON: CHEST 2 VIEW 05/06/2018 5:20 PM. TECHNIQUE: 2 views. FINDINGS: Lungs/Pleura: There is bilateral interstitial prominence without significant change. No mass or consolidation. Lung volumes are normal. Negative for pneumothorax. Mediastinum: The heart size is normal. The trachea is midline. Other: None. IMPRESSION: Chronic airway thickening versus mild bronchitis. No focal pneumonia. [facility]
[2019-12-27 18:24] VITALS: BP 130/79
== END 2019-12-27 18:24 | disposition home or self-care (01) ==
LOC: ED 16:38
DX: J40 Bronchitis, not specified as acute or chronic (principal); F17.200 Nicotine dependence, unspecified, uncomplicated
CPT/HCPCS: 71046; 93005; 94640; 94664; 99284; J7512